=== PATIENT | female | born 1980 | race African-American/Black ===

== ENCOUNTER 2017-07-21 06:21 | Day surgery (SDC) | payer MEDICAID ==
[~2017-07-21] VITALS: Ht 160 cm; Wt 127.5 kg
--- NOTE | ~2017-07-21 | OP ---
PATIENT NAME: SHARATH HALE MEDICAL RECORD: [id number] :80 LOCATION:D.OPS ADMISSION DATE: SURGEON: JAM ANDRADE MD DATE OF OPERATION: 07/21/2017 PREOPERATIVE DIAGNOSES: 1. Biliary dyskinesia. 2. Morbid obesity. 3. Hypertension. 4. Hypercholesterolemia. 5. Diabetes mellitus. POSTOPERATIVE DIAGNOSES: 1. Biliary dyskinesia. 2. Morbid obesity. 3. Hypertension. 4. Hypercholesterolemia. 5. Diabetes mellitus. PROCEDURE: Laparoscopic cholecystectomy. SURGEON: Jam Andrade MD ORACLE APPLICATIONS DEVELOPER: Maren Rivera APRN REPORT OF PROCEDURE: The patient's abdomen was prepped and draped in sterile fashion. A cutdown was made on the superior aspect of the umbilicus, 0 Vicryls were placed in the fascia bilaterally and the fascia was incised with a 15-blade. I then bluntly entered the peritoneal cavity and placed a 12-mm Yazan port. Under direct visualization, a 5 mm trocar was placed in the epigastrium and 2 more 5 mm trocars were placed in the right subcostal region. The gallbladder was grasped and elevated. There were some inflammatory adhesions that were present and these were teased down carefully with blunt dissection. The cystic artery and cystic duct were dissected free and these were clipped proximally and distally and ligated in standard fashion. The gallbladder was taken off the liver bed using electrocautery and placed into an Endo Catch bag. Any bleeding from the liver bed was then treated with electrocautery. At this point, the ports and insufflation were then removed and the gallbladder was taken out through the umbilicus. The umbilical fascia was closed with interrupted 0 Vicryls times 3. The wounds were then irrigated out with normal saline, infused with 10 mL of 0.25% Marcaine with epinephrine. The skin incisions were all closed with subcutaneous 5-0 Monocryl and dressed appropriately. COMPLICATIONS: None. CONDITION: Stable. ANESTHESIA: General endotracheal and local. BLOOD LOSS: Minimal. TRANSINT:[id number] Voice Confirmation ID: [id number] DOCUMENT ID: [id number] OPERATIVE REPORT [id number] SHARATH HALE JAM ANDRADE MD at 1309 CC: [id number] DICTATION DATE: 07/21/17915 SOLAR PROJECT MANAGER: 07/21/17 1217 [facility] 07/21/17 [facility] [address] [place] [address]
[~2017-07-21 06:21] MED LIST: FERROUS SULFAT325 MG PO; GLUCOPHAGE500 MG PO
[2017-07-21 07:02] LABS: BASOPHILS 0.2 % (0-2); EOSINOPHILS 1.2 % (0-7); HEMATOCRIT 40.4 % (36.0-48.0); HEMOGLOBIN 12.6 g/dL (12-16); IMMATURE GRANULOCYTES 0.3 % (0-5); LYMPHOCYTES 36.1 % (15-50); MCH 24.9 pg (26.0-34.0); MCHC 31.2 g/dL (31.0-37.0); MCV 79.8 fL (80.0-100.0); MEAN PLATELET VOLUME 9.8 fL (7.4-10.4); MONOCYTES 6.2 % (2-11); PLATELET COUNT 402 10x3/uL (130-400); RBC 5.06 10x6/uL (4.00-5.40); RDW 17.3 % (11.5-14.5); WBC 11.2 10x3/uL (4.8-10.8)
[2017-07-21 07:12] VITALS: BP 193/97; Ht 160 cm; Wt 127.5 kg
[2017-07-21 07:19] LABS: CALC OSMOLALITY 287 mosm/kg (275-300); CALCIUM 9.4 mg/dL (8.5-10.1); CARBON DIOXIDE 28.7 mmol/L (21.0-32.0); CHLORIDE - SERUM 103 mmol/L (98-107); CREATININE - SERUM 0.8 mg/dL (0.6-1.3); GLUCOSE 189 mg/dL (74-106); POTASSIUM - SERUM 3.8 mmol/L (3.5-5.1); SODIUM 141 mmol/L (136-145); UREA NITROGEN 17 mg/dL (7-18); eGFR NON AFRICAN AMERICAN 85 mL/min (90-120)
[2017-07-21 07:41] LABS: HCG URINE NEGATIVE (NEGATIVE)
[2017-07-21] MEDS ORDERED: HYDROCODONE-APA1 TAB PO (09:10)
== END 2017-07-21 11:15 | disposition home or self-care (01) ==
LOC: D.OPS 06:21 → D.PAN 08:00 → D.OPS 11:15
PROVIDERS: Surgery
DX: K82.4 Cholesterolosis of gallbladder (principal); E66.01 Morbid (severe) obesity due to excess calories; Z68.42 Body mass index [BMI] 45.0-49.9, adult; I10 Essential (primary) hypertension; E78.00 Pure hypercholesterolemia, unspecified; E11.9 Type 2 diabetes mellitus without complications; Z01.812 Encounter for preprocedural laboratory examination